=== PATIENT | female | born 1950 | race Caucasian/White ===

== ENCOUNTER 2017-10-15 14:13 | Inpatient (IN) | payer MEDICARE, BC ==
[2017-10-15] MEDS ORDERED: Morphine INJ* 4 MG/ML 1 ML SYRINGE (NEW SYRINGE VERSION) IV ONE ×2 (14:37→15:39)
[2017-10-15] MEDS ORDERED: Ondansetron INJ* 2 MG/ML VIAL IV ONE (14:37)
[2017-10-15] MEDS: NS 0.9% 1000 ML* 1,000 ML IV SCH ×3 (14:43→21:45)
[2017-10-15 15:19] LABS: ABS Basophils 0.1 10^3/ul (0-0.2); ABS Eosinophils 0.1 10^3/ul (0-0.6); ABS Lymphocytes 1.2 10^3/ul (1.0-4.8); ABS Monocytes 0.5 10^3/ul (0-0.8); ABS Neutrophils 3.3 10^3/ul (1.5-7.7); ABS Nucleated RBC 0 10^3/ul; Eosinophil % 1.3 % (0-6); Hematocrit 40 % (35-47); Hemoglobin 13.5 g/dl (12.0-16.0); Lymphocyte % 23.2 % (25-47); Mean Corpuscular HGB Conc 34 g/dl (31-36); Mean Corpuscular Hemoglobin 34 pg (27-31); Mean Corpuscular Volume 100 fL (80-97); Mean Platelet Volume 7.8 um3 (7.4-10.4); Nucleated Red Blood Cells % 0; Platelet Count 278 10^3/ul (150-450); Red Blood Count 3.97 10^6/ul (4.0-5.4); Red Cell Distribution Width 13 % (10.5-15); White Blood Count 5.2 10^3/ul (3.5-10.8)
[2017-10-15 15:28] LABS: INR 0.86 (0.77-1.02)
[2017-10-15] MEDS ORDERED: Morphine INJ* 4 MG/ML 1 ML SYRINGE (NEW SYRINGE VERSION) ONE (15:40)
--- NOTE | 2017-10-15 16:29 | RAD ---
Indication: LEFT hip and thigh pain post fall. Comparison: No relevant prior exams available on the [facility] PACS for comparison. Technique: Crosstable RIGHT lateral decubitus oblique AP view of the pelvis and crosstable AP view of the proximal through mid to distal diaphysis of the LEFT femur. Report: Oblique positioning limits assessment. There is an intratrochanteric fracture of the femur with varus angulation. The femoral head remains located at the acetabulum. Mild osteophytic lipping and axial joint space narrowing at the hips similar to the contralateral side. No pelvic fracture evident. Negative for pelvic joint diastases. IMPRESSION: Limited exam due to oblique positioning with evidence for an intratrochanteric fracture of the LEFT femur with resulting varus positioning. Correlate with clinical assessment and consider repeat radiographs for confirmation if deemed appropriate.
--- NOTE | 2017-10-15 16:29 | RAD ---
Indication: LEFT hip and thigh pain post fall. Comparison: No relevant prior exams available on the [facility] PACS for comparison. Technique: Crosstable RIGHT lateral decubitus oblique AP view of the pelvis and crosstable AP view of the proximal through mid to distal diaphysis of the LEFT femur. Report: Oblique positioning limits assessment. There is an intratrochanteric fracture of the femur with varus angulation. The femoral head remains located at the acetabulum. Mild osteophytic lipping and axial joint space narrowing at the hips similar to the contralateral side. No pelvic fracture evident. Negative for pelvic joint diastases. IMPRESSION: Limited exam due to oblique positioning with evidence for an intratrochanteric fracture of the LEFT femur with resulting varus positioning. Correlate with clinical assessment and consider repeat radiographs for confirmation if deemed appropriate.
[2017-10-15] MEDS ORDERED: HYDROmorphone INJ* 1 MG/ML CARPUJECT SYRINGE IV ONE (16:42)
[2017-10-15] MEDS ORDERED: HYDROmorphone INJ* 2 MG/ML CARPUJECT SYRINGE ONE (16:45)
[2017-10-15] MEDS ORDERED: Ondansetron INJ* 2 MG/ML VIAL IV PRN (17:20)
[2017-10-15] MEDS ORDERED: Polyethylene Glycol 3350* 17 GM PACKET PO PRN (17:20)
[2017-10-15] MEDS ORDERED: hydrALAZINE IV* 20 MG/ML VIAL IV SLOW PU PRN (17:22)
--- NOTE | 2017-10-15 17:30 | RAD ---
Indication: Fall with LEFT hip fracture. Comparison: Radiographs of the same date. Technique: Noncontrast CT pelvis and proximal femurs performed with the patient in the RIGHT lateral decubitus position. Multiplanar reformation. Report: Comminuted intratrochanteric fracture of the LEFT femur with apex lateral and anterior angulation. The femoral head remains located at the acetabulum. Small LEFT hip joint effusion. 3.7 cm AP by 5.5 cm transverse by 4.3 cm cephalocaudal hematoma between the fracture fragments and the gluteus pippa muscle posteriorly. Moderate marginal osteophytosis and axial joint space narrowing at both hips. Negative for pelvic fracture or pelvic joint diastases. Severe diverticulosis of the sigmoid colon. Distended urinary bladder. Negative for free pelvic fluid. IMPRESSION: Comminuted intratrochanteric fracture of the LEFT femur with apex lateral and anterior angulation. The femoral head remains located at the acetabulum.
[2017-10-15] MEDS ORDERED: Acetaminophen TAB* 325 MG PO PRN (18:12)
--- NOTE | 2017-10-15 18:29 | ED ---
Luis Armando Richardson Natalie, scribed for Carlos Burkett MD on 10/15/17 at 1520 . Lower Extremity - HPI Summary HPI Summary: The pt is a 67 y/o F presenting to the ED c/o pain in left femur and hip s/p fall today. She was standing up when a dog ran into her leg, she fell on her right side, rolled, and then was unable to stand up. The pain is rated 8/10. There is minimal pain in her left knee. She denies pain in her wrist, shoulders , and ankle. She usually get cramps, which have been making the pain worse. She does not take any medications regularly. - History of Current Complaint Chief Complaint: EDExtremityLower Stated Complaint: FALL/KNOCKED DOWN Time Seen by Provider: 10/15/17 14:37 Hx Obtained From: Patient Mechanism Of Injury: Other - knocked down on left leg Onset of Pain: Immediate Pain Intensity: 8 Pain Scale Used: 0-10 Numeric Timing: Lasting Minutes Location: Is Discrete @ - left femur Associated Signs And Symptoms: Positive: Knee Pain, Other - NEGATIVE: pain in shoulders, wrist, ankle Aggravating Factor(s): Standing, Movement Alleviating Factor(s): Rest Able to Bear Weight: No - Allergies/Home Medications Allergies/Adverse Reactions: Allergies Allergy/AdvReac Type Severity Reaction Status Date / Time No Known Allergies Allergy Verified 10/15/17 14:19 Home Medications: Home Medications NK [No Home Medications Reported] 10/15/17 [History Confirmed 10/15/17] PMH/Surg Hx/FS Hx/Imm Hx Previously Healthy: Yes Opthamlomology History: Denies: Hx Legally Blind EENT History: Denies: Hx Deafness Infectious Disease History: No Infectious Disease History: Denies: Traveled Outside the [place] in Last 30 Days - Family History Known Family History: Negative: Cardiac Disease, Diabetes - Social History Alcohol Use: None Substance Use Type: Reports: None Smoking Status (MU): Never Smoked Tobacco Review of Systems Negative: Fever Positive: Decreased ROM, Other - pain in left femur All Other Systems Reviewed And Are Negative: Yes Physical Exam Triage Information Reviewed: Yes Vital Signs On Initial Exam: Initial Vitals Temp Pulse Resp BP Pulse Ox 99.0 F 102 20 164/78 95 10/15/17 14:20 10/15/17 14:20 10/15/17 14:20 10/15/17 14:20 10/15/17 14:20 Vital Signs Reviewed: Yes Appearance: Positive: Well-Appearing, Pain Distress - moderate Skin: Positive: Warm, Skin Color Reflects Adequate Perfusion, Dry Head/Face: Positive: Normal Head/Face Inspection Eyes: Positive: EOMI, VENITA ENT: Positive: Normal ENT inspection Neck: Positive: Supple, Nontender Respiratory/Lung Sounds: Positive: Clear to Auscultation, Breath Sounds Present Cardiovascular: Positive: RRR Abdomen Description: Positive: Nontender, Soft Bowel Sounds: Positive: Present Musculoskeletal: Positive: Normal, Other - tender to palpation in left proximal femur Neurological: Positive: Normal, Sensory/Motor Intact, Alert, Oriented to Person Place, Time Psychiatric: Positive: Affect/Mood Appropriate Diagnostics - Vital Signs Vital Signs Temp Pulse Resp BP Pulse Ox 10/15/17 14:43 16 10/15/17 14:30 101 157/63 96 10/15/17 14:22 100 95 10/15/17 14:20 99.0 F 102 20 162/81 95 - Laboratory Lab Results: Lab Results 10/15/17 10/15/17 10/15/17 Range/Units 14:32 14:32 14:32 WBC 5.2 (3.5-10.8) 10^3/ul RBC 3.97 L (4.0-5.4) 10^6/ul Hgb 13.5 (12.0-16.0) g/dl Hct 40 (35-47) % MCV 100 H (80-97) fL MCH 34 H (27-31) pg MCHC 34 (31-36) g/dl RDW 13 (10.5-15) % Plt Count 278 (150-450) 10^3/ul MPV 7.8 (7.4-10.4) um3 Neut % (Auto) 64.6 (38-83) % Lymph % (Auto) 23.2 L (25-47) % [place] % (Auto) 9.8 H (0-7) % Eos % (Auto) 1.3 (0-6) % Baso % (Auto) 1.1 (0-2) % Absolute Neuts (auto) 3.3 (1.5-7.7) 10^3/ul Absolute Lymphs (auto) 1.2 (1.0-4.8) 10^3/ul Absolute Monos (auto) 0.5 (0-0.8) 10^3/ul Absolute Eos (auto) 0.1 (0-0.6) 10^3/ul Absolute Basos (auto) 0.1 (0-0.2) 10^3/ul Absolute Nucleated RBC 0 10^3/ul Nucleated RBC % 0 INR (Anticoag Therapy) 0.86 (0.77-1.02) APTT 30.8 (26.0-36.3) seconds Sodium 136 L (139-145) mmol/L Potassium 4.3 (3.5-5.0) mmol/L Chloride 97 L (101-111) mmol/L Carbon Dioxide 29 (22-32) mmol/L Anion Gap 10 (2-11) mmol/L BUN 17 (6-24) mg/dL Creatinine 0.62 (0.51-0.95) mg/dL Est GFR ( Amer) 123.5 (>60) Est GFR (Non-Af Amer) 96.0 (>60) BUN/Creatinine Ratio 27.4 H (8-20) Glucose 106 H (70-100) mg/dL Calcium 9.8 (8.6-10.3) mg/dL Total Bilirubin 0.40 (0.2-1.0) mg/dL AST 18 (13-39) U/L ALT 15 (7-52) U/L Alkaline Phosphatase 67 (34-104) U/L Total Protein 7.7 (6.4-8.9) g/dL Albumin 4.6 (3.2-5.2) g/dL Globulin 3.1 (2-4) g/dL Albumin/Globulin Ratio 1.5 (1-3) Result Diagrams: 10/15/17 14:32 10/15/17 14:32 Lab Statement: Any lab studies that have been ordered have been reviewed, and results considered in the medical decision making process. - Radiology L Femur XR Xray Interpretation: Positive (See Comments) - Limited exam due to oblique positioning with evidence for an intratrochanteric fracture of the LEFT femur with resulting varus positioning. Correlate with clinical assessment and consider repeat radiographs for confirmation if deemed appropriate. ED physician has reviewed this report. Radiology Interpretation Completed By: Radiologist Pelvis XR Xray Interpretation: Positive (See Comments) - Limited exam due to oblique positioning with evidence for an intratrochanteric fracture of the LEFT femur with resulting varus positioning. Correlate with clinical assessment and consider repeat radiographs for confirmation if deemed appropriate. ED physician has reviewed this report. Radiology Interpretation Completed By: Radiologist Lower Extremity Course/Dx - Course Course Of Treatment: Medications reviewed. BP noted and advised to follow up with PCP. DISCUSSED WITH DR GREENE. ADMIT HOSPITALIST. - Diagnoses Provider Diagnoses: Elevated BP without diagnosis of hypertension, Hip fracture, left Discharge - Sign-Out/Discharge Documenting (check all that apply): Discharge - Discharge Plan Condition: Stable Disposition: ADMITTED TO [facility] Discharge Disposition Comment: The pt will be admitted to [facility]. Referrals: Amari William MD [Primary Care Provider] - Additional Instructions: Your blood pressure was elevated during todays visit; please follow up with your primary care provider within a week for further evaluation. - Billing Disposition and Condition Condition: STABLE Disposition: [facility] The documentation as recorded by the Luis Armando lao Natalie accurately reflects the service I personally performed and the decisions made by me, Carlos Burkett MD.
[2017-10-15] MEDS ORDERED: Heparin VIAL(*) 5000 UNITS/ML VIAL (FIVE THOUSAND) SUBCUT SCH ×2 (19:00→22:00)
[2017-10-15] MEDS: HYDROmorphone INJ* 2 MG/ML CARPUJECT SYRINGE IV SLOW PU PRN ×2 (19:08→22:22)
[2017-10-15] MEDS: Senna TAB PO SCH (20:42)
--- NOTE | 2017-10-15 23:03 | HP ---
HISTORY AND PHYSICAL: DATE OF ADMISSION: 10/15/17. ADMITTING PROVIDER: Ac Drake MD. PRIMARY CARE PHYSICIAN: Dr. Amari William. CHIEF COMPLAINT: Left leg and hip pain after a fall. HISTORY OF PRESENT ILLNESS: Alexia Liang is a 67-year-old female with no past medical history, but does frequently drink wine 5 days a week, 3 glasses a day, but denies any history of withdrawal symptoms, DUIs or other impairment of function. She was playing with her dog in the dog park when a presumably large dog rammed into her blind-sided her such that she was not even prepared to catch her fall with her arms. She landed on to her left side, flipped around, so that the left side was then up and was immediately in pain and a degree of shock, felt degree of numbness of the left leg at that time. She was transported to the [facility] Emergency Room and had femur x-ray, pelvis x-ray, and pelvis CT scans, which demonstrated evidence of a comminuted intertrochanteric fracture of the left femur with apex, lateral, and anterior angulation and retention of the femoral head in the acetabulum. Dr. Pan of Orthopedic Surgery was contacted by the emergency room, who requested the hospitalist service to admit the patient in anticipation of surgery. The patient's blood pressures elevated in the emergency room initially 160s/80s and then up to 180s/ 80s and heart rate in the low 100s. She is getting multiple doses of IV morphine and Dilaudid to control the pain with the repositioning required for the imaging studies. She states that if she is not moving, the pain was about 5 or 6 out of 10 and with moving it becomes quite bad, 9 out of 10. She denies other complaints. Specifically, denies any fever, chills, nausea, vomiting, diarrhea, or constipation, headaches, vision changes, rashes. Dr. Pan is planning surgery tomorrow morning. PAST MEDICAL HISTORY: None other than frequent alcohol use approximately 15 glasses of wine a week for the last 15 years. MEDICATIONS: None. ALLERGIES: No known drug allergies. FAMILY HISTORY: The patient's mother and father both in their 90s and suffered dementia at that time. One brother of lung cancer, likely metastatic to the brain. Other sisters are healthy. SOCIAL HISTORY: The patient lives alone in [place], [place]. 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 She occasionally works at the [employer]. Her medical surrogate is her daughter, Shannan Miramontes. She desires to be a full code. REVIEW OF SYSTEMS: A complete 14-point review of systems was negative except as per HPI. PHYSICAL EXAMINATION GENERAL APPEARANCE: No acute distress, lying in the right lateral decubitus position. VITAL SIGNS: Heart rate 103, blood pressure 182/84, temperature 99.0, oxygen sat 97% on room air, respiratory rate 16 to 20. HEENT: Normocephalic, atraumatic. Pupils are equal, round and reactive to light. Extraocular motions are intact. NECK: Supple. No cervical lymphadenopathy. PULMONARY: Clear to auscultation bilaterally with no wheezing, rales, or rhonchi. CARDIOVASCULAR: Regular rate and rhythm. Slightly tachycardic. No murmurs appreciated. ABDOMEN: Soft, nontender, nondistended. EXTREMITIES: Warm, well perfused. Left leg with intact sensation. No gross deformity or skin breaks. NEUROLOGIC: Sensation intact bilaterally. Cranial nerves intact grossly. Full lower extremity testing not performed given femur fracture. SKIN: No lesions. No rashes. LABORATORY DATA: White count 5.2, hemoglobin 13.5, hematocrit 40, MCV 100, platelets 278. INR 0.86. Sodium 136, potassium 4.3, chloride 97, BUN 17, creatinine 0.62, glucose 106, total bili 0.48, AST 18, ALT 15, alk phos 67. IMAGING: Femur x-ray demonstrated a limited exam due to oblique positioning with evidence of an intertrochanteric fracture of the left femur with resulting varus positioning. Pelvis x-ray as above. CT pelvis, noncontrast demonstrated comminuted intertrochanteric fracture of the left femur with apex, lateral and anterior angulation. Femoral head remains located at the acetabulum. ASSESSMENT AND PLAN: Alexia Liang is a 67-year-old female with past medical history significant for 15 glasses of wine, alcohol use, but denies any history of withdrawals or seizures presenting with left comminuted intertrochanteric fracture after a mechanical fall after being rammed and blind sided by a dog. We will control her blood pressures with hydralazine p.r.n. We will get an EKG as we do not have one in our system to help with assess risks perioperatively. We will control her pain with Dilaudid 1 mg q.3 hours p.r.n., add on bowel regimen and antinausea with Zofran. She can eat an unrestricted diet until midnight then NPO. She was also getting acetaminophen 650 mg p.o. q.6 hours p.r.n. for pain or fevers. We will give one heparin 5000 unit shot tonight and then hold in the morning given the anticipated surgery around 8:00 a.m. Low threshold to place the patient on WAM protocol, but we will defer for now. She is being admitted to inpatient status. She is a full code. Medical surrogate is her daughter, Shannan Miramontes. [id number]/[facility] #: [id number] MTDKatelyn
[2017-10-16] MEDS: HYDROmorphone INJ* 2 MG/ML CARPUJECT SYRINGE IV SLOW PU PRN ×3 (01:35→07:44)
[2017-10-16] MEDS: NS 0.9% 1000 ML* 1,000 ML IV SCH ×2 (04:46→22:07)
[2017-10-16] MEDS ORDERED: Famotidine IV* 10 MG/ML 2 ML (20 mg) IV ONE (06:00)
[2017-10-16] MEDS ORDERED: fentaNYL* 50 MCG/ML 2 ML VIAL (100 MCG VIAL) ONE (07:33)
[2017-10-16] MEDS ORDERED: Midazolam* 1 MG/ML 5 ML VIAL (5 MG) ONE (07:33)
[2017-10-16] MEDS ORDERED: Scopolamine 1.5 mg* PATCH ONE (07:51)
[2017-10-16] MEDS ORDERED: KETAMINE HCL* 50 MG/ML 10 ML VIAL ONE (07:59)
[2017-10-16] MEDS ORDERED: Scopolamine 1.5 mg* PATCH TRANSDERM SCH (08:00)
[2017-10-16] MEDS ORDERED: HYDROmorphone INJ* 1 MG/ML CARPUJECT SYRINGE IV PRN (08:30)
[2017-10-16] MEDS ORDERED: DiMENhydriNATE IV* 50 MG/ML VIAL IV PUSH PRN (08:30)
[2017-10-16] MEDS ORDERED: fentaNYL* 50 MCG/ML 2 ML VIAL (100 MCG VIAL) IV PRN (08:30)
[2017-10-16] MEDS ORDERED: PROCHLORPERAZINE INJ 5 MG/ML 2 ML VIAL IV PRN (08:30)
[2017-10-16] MEDS ORDERED: Naloxone* 0.4 MG/ML 1 ML VIAL IV PRN (08:30)
[2017-10-16] MEDS ORDERED: ceFAZolin 2 GM PREMIX (*) 2 GM/50 ML BAG IVPB ONE (08:43)
[2017-10-16] MEDS ORDERED: Bupivacaine 0.5% SDV PF* 30ML VIAL ONE ×2 (09:35→09:53)
[2017-10-16] MEDS ORDERED: Lidocain 1% EPI 1:100,000 * 30 ML MDV ONE (09:35)
[2017-10-16] MEDS ORDERED: Lidocaine 2% PF * 5 ML VIAL ONE (09:52)
[2017-10-16] MEDS ORDERED: Propofol* 500 MG/50 ML BTL ONE (09:52)
[2017-10-16] MEDS ORDERED: Phenylephrine INJ* 10 MG/ML 1 ML VIAL (10 MG) ONE (09:52)
[2017-10-16] MEDS ORDERED: PROCHLORPERAZINE INJ 5 MG/ML 2 ML VIAL ONE (09:53)
[2017-10-16] MEDS ORDERED: Ketorolac INJ* 30 MG/ML 1 ML VIAL ONE (09:53)
[2017-10-16] MEDS ORDERED: Dexamethasone IV* 4 MG/ML 1 ML (4 MG) ONE (09:53)
[2017-10-16] MEDS ORDERED: EPHEDrine (Pressors)* 50 MG/ML VIAL ONE (10:31)
--- NOTE | 2017-10-16 10:45 | RAD ---
INDICATION: Left hip ORIF, left femur fracture, pain status post fall COMPARISONS: October 15, 2017 TECHNIQUE: Fluoroscopy was provided for a surgical procedure. Total fluoroscopy time is: 35.9 seconds FINDINGS: Spot images demonstrated internal fixation of the left femur. IMPRESSION: FLUOROSCOPY WAS PROVIDED FOR A SURGICAL PROCEDURE CPT II Codes: 6045F
[2017-10-16] MEDS ORDERED: Morphine INJ* 2 MG/ML 1 ML CARPUJECT IV PRN (13:11)
[2017-10-16] MEDS ORDERED: Heparin VIAL(*) 5000 UNITS/ML VIAL (FIVE THOUSAND) SUBCUT SCH (14:00)
--- NOTE | 2017-10-16 14:24 | OP ---
DATE OF SURGERY: 10/15/17 - ROOM #349 DATE OF : 50 ATTENDING PHYSICIAN: Randy Pan MD. PREOPERATIVE DIAGNOSIS: A 4-part left intertrochanteric displaced hip fracture. POSTOPERATIVE DIAGNOSIS: A 4-part left intertrochanteric displaced hip fracture. OPERATIVE PROCEDURE: Open reduction/internal fixation left hip fracture. ANESTHESIA: Spinal with sedation. ESTIMATED BLOOD LOSS: Less than 50 mL. COMPLICATIONS: None. HARDWARE: Synthes DHS 150 degree 4-hole short barrel plate with 100 mm screw and compression screw. SUMMARY: Ms. Liang is a 67-year-old female who yesterday had been knocked over by some dogs at the [employer]. She had not seem them and had fallen directly onto her left hip. She had significant pain over the hip and was brought to the emergency room here at [facility], where an x-ray found a left hip fracture. Unfortunately, she had such significant pain and we are unable to say exactly what type of fracture she had, so she underwent a CAT scan which showed a 4-part left intertrochanteric fracture. I discussed with her that a DHS should work well to hold the bones in place while they heal. I had warned her that she has some comminution and that the lesser trochanter will continue to give her pain, but she will be able to put some weight on this and maneuver and hopefully be in a lot less pain than she would be preoperatively. Risk of surgery such as infection, scar formation, stiffness, DVT, pulmonary embolism, hardware failure, nonunion, and losing a level of function were some of the risks discussed she had wished to proceed. PROCEDURE IN DETAIL: Patient was brought to the OR and spinal anesthesia was introduced. She was then placed on the fracture table in position so that her arms are nicely padded and that the right leg was abducted and flexed and there was no tension on her abductors. Traction was placed and hip was reduced and this was adjusted and filled. I had essentially a perfect AP and lateral view with an excellent reduction. Left hip area was prepped and then draped. Skin over the incision layer was infiltrated using a 50:50 mixture of 0.5% Marcaine and 1% lidocaine with epinephrine. Incision was made laterally over the greater trochanter coming downward for a good 8 cm. Incision was carried down through the skin and subcutaneous tissues. Fascia laterally was exposed and sharply incised. Fascia of the vastus lateralis was easily found and I found a nice convenient gap and this was sharply split. Using finger dissection and with a Reyes I was able to split the muscle inline the fibers coming down to the lateral aspect of the femur. Reyes was then used to remove soft tissues from the lateral aspect of the femur. Beginning with a 135 degree angle guide, I ran a guidepin up through the neck towards the head, but with the positioning I was unhappy with how the angle came and eventually switched to a 150 degree. Guidepin was adjusted and with the guidepin in I liked the positioning on the AP view. Coming to the lateral, I was very anterior and second pin was then placed parallel to this pin and original pin was removed. I like the new positioning of the pin as I was right down the neck coming in to the head very nicely. Portion of the pin sticking out which was measured and a 100 mm hip screw was called for. Triple reamer was run with a short barrel and hip screw was then placed. Nice bite was obtained. A 150-degree 4-hole short barrel plate was then placed and positioned until it sat nicely against the side of the femur. One screw was placed to just pull the plate down and hold the plate and the 3 remaining screw holes were filled in standard AO fashion. Original screw was long, but I intended this to be so, and this was removed and a appropriate size screw was placed. Final x-ray pictures were taken and saved. Compression screw was also placed. Wound was irrigated a using bulb syringe and muscular fascia was repaired using a running 0 Vicryl stitch. Fascia was repaired a using a running #1 Vicryl stitch and the subcutaneous tissues were approximated 2- 0 Vicryl. Skin was closed using kyree. Sterile dressing was applied in the OR. Patient was awaken stable on transfer to the recovery room. [id number]/[facility] #: [id number] LIZZIE
[2017-10-16 15:34] LABS: ABS Basophils 0 10^3/ul (0-0.2); ABS Eosinophils 0 10^3/ul (0-0.6); ABS Lymphocytes 0.3 10^3/ul (1.0-4.8); ABS Monocytes 0.6 10^3/ul (0-0.8); ABS Neutrophils 7.3 10^3/ul (1.5-7.7); ABS Nucleated RBC 0 10^3/ul; Eosinophil % 0 % (0-6); Hematocrit 34 % (35-47); Hemoglobin 11.7 g/dl (12.0-16.0); Lymphocyte % 3.4 % (25-47); Mean Corpuscular HGB Conc 34 g/dl (31-36); Mean Corpuscular Hemoglobin 34 pg (27-31); Mean Corpuscular Volume 99 fL (80-97); Mean Platelet Volume 7.5 um3 (7.4-10.4); Nucleated Red Blood Cells % 0; Platelet Count 227 10^3/ul (150-450); Red Blood Count 3.45 10^6/ul (4.0-5.4); Red Cell Distribution Width 12 % (10.5-15); White Blood Count 8.2 10^3/ul (3.5-10.8)
[2017-10-16 15:52] LABS: EGFR Non-African American 110.2 (>60)
[2017-10-16] MEDS: Ketorolac INJ* 15 MG/ML 1 ML VIAL IV PUSH SCH (17:12)
[2017-10-16] MEDS: ceFAZolin 1 GM in Dextrose (*) 1 GM/50 ML BAG IVPB SCH (17:13)
[2017-10-16] MEDS: HYDROcodone/ACETAMIN 5-325 MG* 1 TAB PO PRN ×2 (17:58→22:06)
--- NOTE | 2017-10-16 18:37 | PN ---
Subjective Date of Service: 10/16/17 Interval History: HOSPITALIST PROGRESS NOTE Patient seen and examined in PACU. Case reviewed with her RN Kole Roberts. She feels well after surgery, pain is well controlled. Family History: Unchanged from Admission Social History: Unchanged from Admission Past Medical History: Unchanged from Admission Objective Active Medications: Acetaminophen (Tylenol Tab*) 650 mg PO Q6H PRN PRN Reason: FEVER/PAIN Hydrocodone Bitart/Acetaminophen ([place] 5-325 Tab*) 2 tab PO Q4H PRN PRN Reason: MOD. Last Admin: 10/16/17 17:58 Dose: 2 tab Aspirin (Aspirin Tab*) 325 mg PO DAILY [facility] Heparin Sodium (Porcine) (Heparin Vial(*)) 5,000 units SUBCUT 0600,1400,2200 [facility] Hydralazine HCl (Apresoline Iv*) 10 mg IV SLOW PU Q2H PRN PRN Reason: SYSTOLIC BP GREATER THAN: Sodium Chloride (Ns 0.9% 1000 Ml*) 1,000 mls @ 75 mls/hr IV PER RATE [facility] Last Admin: 10/16/17 04:46 Dose: 75 mls/hr Cefazolin Sodium/Dextrose (Kefzol 2 Gm Premix(*)) 2 gm in 50 mls @ 100 mls/hr IVPB ONCALL ONE Stop: 10/17/17 09:14 Cefazolin Sodium/Dextrose (Kefzol 1 Gm In Dextrose Duplex (*)) 1 gm in 50 mls @ 200 mls/hr IVPB Q8H [facility] Stop: 10/17/17 09:14 Last Admin: 10/16/17 17:13 Dose: 200 mls/hr Ketorolac Tromethamine (Toradol Inj*) 15 mg IV PUSH Q8H [facility] Last Admin: 10/16/17 17:12 Dose: 15 mg Morphine Sulfate (Morphine Inj (Syringe)*) 2 mg IV Q1H PRN PRN Reason: SEVERE Ondansetron HCl (Zofran Inj*) 4 mg IV Q6H PRN PRN Reason: NAUSEA Pharmacy Profile Note (Scopolamine Patch Remove*) 1 note PATCH OFF Q72H [facility] Polyethylene Glycol/Electrolytes (Miralax*) 17 gm PO DAILY PRN PRN Reason: CONSTIPATION Scopolamine (Transderm-Scop 1.5 Mg Patch*) 1 patch TRANSDERM Q72H [facility] Last Admin: 10/16/17 08:21 Dose: Not Given Senna (Senokot Tab*) 1 tab PO BEDTIME [facility] Last Admin: 10/15/17 20:42 Dose: Not Given Vital Signs - 8 hr 10/16/17 10/16/17 10/16/17 10:45 10:50 10:55 Temperature 97.9 F Pulse Rate 94 93 92 Respiratory 16 14 14 Rate Blood Pressure 146/68 142/78 150/84 (mmHg) O2 Sat by Pulse 99 99 97 Oximetry 10/16/17 10/16/17 10/16/17 11:00 11:15 11:30 Temperature 98.4 F Pulse Rate 89 83 81 Respiratory 14 14 14 Rate Blood Pressure 156/73 160/84 154/87 (mmHg) O2 Sat by Pulse 97 99 97 Oximetry Oxygen Devices in Use Now: Nasal Cannula Appearance: Pleasant lady lying in bed in NAD. Eyes: No Scleral Icterus Ears/Nose/Mouth/Throat: Mucous Membranes Moist Neck: Trachea Midline Respiratory: Symmetrical Chest Expansion and Respiratory Effort, Clear to Auscultation Cardiovascular: RRR - Normal S1 and S2 Extremities: No Edema, - - Good pulses bilaterally Neurological: Alert and Oriented x 3 Result Diagrams: 10/16/17 15:26 10/16/17 15:26 Assess/Plan/Problems-Billing Assessment: Ms. Liang is a 67yo F with PMH of possible ETOH abuse, who presented with c/o hip pain after fall found to have left hip fracture. - Patient Problems (1) Closed left femoral fracture Comment: - s/p ORIF 10/16/[address] Pan. EBL 50 ml. - Management as per Ortho. (2) ETOH abuse Comment: - There is concern for possible ETOH abuse considering the amount of wine she drinks. No signs of withdrawal at this time - will continue to monitor. (3) DVT prophylaxis Comment: - As per Ortho - SQ heparin. (4) Full code status Status and Disposition: Inpatient for management of ORIF post op.
[2017-10-16] MEDS: Senna TAB PO SCH (20:05)
[2017-10-17] MEDS: Ketorolac INJ* 15 MG/ML 1 ML VIAL IV PUSH SCH ×3 (01:19→17:20)
[2017-10-17] MEDS: ceFAZolin 1 GM in Dextrose (*) 1 GM/50 ML BAG IVPB SCH ×2 (01:21→08:35)
[2017-10-17] MEDS: HYDROcodone/ACETAMIN 5-325 MG* 1 TAB PO PRN ×3 (05:46→15:18)
[2017-10-17] MEDS: Heparin VIAL(*) 5000 UNITS/ML VIAL (FIVE THOUSAND) SUBCUT SCH ×3 (05:47→22:26)
--- NOTE | 2017-10-17 08:19 | PN ---
Progress Note - Progress Note Date of Service: 10/17/17 SOAP: Subjective: 67 y/o female w/ L intertroch hip fx s/p ORIF by Dr. Pan 10/16/2017. Patient doing well, working great with PT, pain better controlled, no side effects. VSS, afebrile overnight. Objective: General- Well appearing, NAD, AO sitting in chair comfortably. MSK- LLE- DF/PF = b/l, PT 2+, negative homans sign + mild edema thigh, surg dressing intact, no induration, drainage noted. SITLT Assessment: Stable 67 y/o female w/ L intertroch hip fx s/p ORIF by Dr. Pan 10/16/2017. Plan: - DVT prophylaxis- heparin in house - Continue PT/ OT - partial weight bearing 50% on LLE - Follow up with Dr. Phillips - H&H - Stable - post-op IV ABX - Running - hyponat- Hold IVFs, MVI, continue to monitor. BMP tomorrow Acetaminophen (Tylenol Tab*) 650 mg PO Q6H PRN PRN Reason: FEVER/PAIN Hydrocodone Bitart/Acetaminophen ([place] 5-325 Tab*) 2 tab PO Q4H PRN PRN Reason: MOD. Last Admin: 10/17/17 05:46 Dose: 2 tab Aspirin (Aspirin Tab*) 325 mg PO DAILY [facility] Last Admin: 10/17/17 08:39 Dose: 325 mg Heparin Sodium (Porcine) (Heparin Vial(*)) 5,000 units SUBCUT 0600,1400,2200 [facility] Last Admin: 10/17/17 05:47 Dose: 5,000 units Hydralazine HCl (Apresoline Iv*) 10 mg IV SLOW PU Q2H PRN PRN Reason: SYSTOLIC BP GREATER THAN: Ketorolac Tromethamine (Toradol Inj*) 15 mg IV PUSH Q8H [facility] Last Admin: 10/17/17 08:37 Dose: 15 mg Morphine Sulfate (Morphine Inj (Syringe)*) 2 mg IV Q1H PRN PRN Reason: SEVERE Multivitamins (Theragran Tab*) 1 tab PO DAILY [facility] Last Admin: 10/17/17 08:39 Dose: 1 tab Ondansetron HCl (Zofran Inj*) 4 mg IV Q6H PRN PRN Reason: NAUSEA Pharmacy Profile Note (Scopolamine Patch Remove*) 1 note PATCH OFF Q72H [facility] Polyethylene Glycol/Electrolytes (Miralax*) 17 gm PO DAILY PRN PRN Reason: CONSTIPATION Scopolamine (Transderm-Scop 1.5 Mg Patch*) 1 patch TRANSDERM Q72H [facility] Last Admin: 10/16/17 08:21 Dose: Not Given Senna (Senokot Tab*) 1 tab PO BEDTIME [facility] Last Admin: 10/16/17 20:05 Dose: 1 tab
[2017-10-17] MEDS: Aspirin TAB* 325 MG PO SCH (08:39)
[2017-10-17] MEDS: Vitamin THERAPEUTIC TAB PO SCH (08:39)
[2017-10-17] MEDS ORDERED: ceFAZolin 2 GM PREMIX (*) 2 GM/50 ML BAG IVPB ONE (08:45)
--- NOTE | 2017-10-17 11:08 | PN ---
Subjective Date of Service: 10/17/17 Interval History: HOSPITALIST PROGRESS NOTE Patient seen and examined at bedside. Her pain is controlled at this time, was able to rest last night. Family History: Unchanged from Admission Social History: Unchanged from Admission Past Medical History: Unchanged from Admission Objective Active Medications: Acetaminophen (Tylenol Tab*) 650 mg PO Q6H PRN PRN Reason: FEVER/PAIN Hydrocodone Bitart/Acetaminophen ([place] 5-325 Tab*) 2 tab PO Q4H PRN PRN Reason: MOD. Last Admin: 10/17/17 10:54 Dose: 2 tab Aspirin (Aspirin Tab*) 325 mg PO DAILY [facility] Last Admin: 10/17/17 08:39 Dose: 325 mg Heparin Sodium (Porcine) (Heparin Vial(*)) 5,000 units SUBCUT 0600,1400,2200 [facility] Last Admin: 10/17/17 05:47 Dose: 5,000 units Hydralazine HCl (Apresoline Iv*) 10 mg IV SLOW PU Q2H PRN PRN Reason: SYSTOLIC BP GREATER THAN: Ketorolac Tromethamine (Toradol Inj*) 15 mg IV PUSH Q8H [facility] Last Admin: 10/17/17 08:37 Dose: 15 mg Morphine Sulfate (Morphine Inj (Syringe)*) 2 mg IV Q1H PRN PRN Reason: SEVERE Multivitamins (Theragran Tab*) 1 tab PO DAILY [facility] Last Admin: 10/17/17 08:39 Dose: 1 tab Ondansetron HCl (Zofran Inj*) 4 mg IV Q6H PRN PRN Reason: NAUSEA Pharmacy Profile Note (Scopolamine Patch Remove*) 1 note PATCH OFF Q72H [facility] Polyethylene Glycol/Electrolytes (Miralax*) 17 gm PO DAILY PRN PRN Reason: CONSTIPATION Scopolamine (Transderm-Scop 1.5 Mg Patch*) 1 patch TRANSDERM Q72H [facility] Last Admin: 10/16/17 08:21 Dose: Not Given Senna (Senokot Tab*) 1 tab PO BEDTIME [facility] Last Admin: 10/16/17 20:05 Dose: 1 tab Vital Signs - 8 hr 10/17/17 10/17/17 10/17/17 04:03 05:46 07:21 Temperature 98.4 F 98.2 F Pulse Rate 68 67 Respiratory 16 17 18 Rate Blood Pressure 134/70 117/61 (mmHg) O2 Sat by Pulse 98 100 Oximetry 10/17/17 10/17/17 10/17/17 07:54 08:40 10:54 Temperature Pulse Rate Respiratory 16 16 16 Rate Blood Pressure (mmHg) O2 Sat by Pulse Oximetry Oxygen Devices in Use Now: None Appearance: Pleasant lady lying in bed in NAD. Eyes: No Scleral Icterus Ears/Nose/Mouth/Throat: Mucous Membranes Moist Neck: Trachea Midline Respiratory: Symmetrical Chest Expansion and Respiratory Effort, Clear to Auscultation, - - BS a little diminished on right base Cardiovascular: NL Sounds; No Murmurs; No JVD, RRR Extremities: No Edema Neurological: Alert and Oriented x 3, NL Muscle Strength and Tone Result Diagrams: 10/16/17 15:26 10/16/17 15:26 Assess/Plan/Problems-Billing Assessment: Ms. Liang is a 67yo F with PMH of possible ETOH abuse, who presented with c/o hip pain after fall found to have left hip fracture. - Patient Problems (1) Closed left femoral fracture Comment: - s/p ORIF 10/16/[address] Pan. EBL 50 ml. - Management as per Ortho. (2) ETOH abuse Comment: - There is concern for possible ETOH abuse considering the amount of wine she drinks but she shows no signs of withdrawal. (3) DVT prophylaxis Comment: - As per Ortho - SQ heparin. (4) Full code status Status and Disposition: Inpatient for management of ORIF post op.
[2017-10-17 15:57] LABS: ABS Basophils 0 10^3/ul (0-0.2); ABS Eosinophils 0 10^3/ul (0-0.6); ABS Lymphocytes 1.2 10^3/ul (1.0-4.8); ABS Monocytes 0.9 10^3/ul (0-0.8); ABS Neutrophils 3.3 10^3/ul (1.5-7.7); ABS Nucleated RBC 0 10^3/ul; Eosinophil % 0.8 % (0-6); Hematocrit 29 % (35-47); Hemoglobin 10.1 g/dl (12.0-16.0); Lymphocyte % 21.4 % (25-47); Mean Corpuscular HGB Conc 35 g/dl (31-36); Mean Corpuscular Hemoglobin 34 pg (27-31); Mean Corpuscular Volume 99 fL (80-97); Mean Platelet Volume 7.3 um3 (7.4-10.4); Nucleated Red Blood Cells % 0; Platelet Count 198 10^3/ul (150-450); Red Blood Count 2.95 10^6/ul (4.0-5.4); Red Cell Distribution Width 12 % (10.5-15); White Blood Count 5.5 10^3/ul (3.5-10.8)
[2017-10-17 16:37] LABS: EGFR Non-African American 117.6 (>60)
[2017-10-17] MEDS: Senna TAB PO SCH (22:28)
[2017-10-18] MEDS: Ketorolac INJ* 15 MG/ML 1 ML VIAL IV PUSH SCH ×2 (00:55→08:23)
[2017-10-18 05:36] LABS: ABS Basophils 0 10^3/ul (0-0.2); ABS Eosinophils 0 10^3/ul (0-0.6); ABS Lymphocytes 1.1 10^3/ul (1.0-4.8); ABS Monocytes 0.8 10^3/ul (0-0.8); ABS Neutrophils 3.6 10^3/ul (1.5-7.7); ABS Nucleated RBC 0 10^3/ul; Eosinophil % 0.8 % (0-6); Hematocrit 28 % (35-47); Hemoglobin 9.6 g/dl (12.0-16.0); Lymphocyte % 19.7 % (25-47); Mean Corpuscular HGB Conc 34 g/dl (31-36); Mean Corpuscular Hemoglobin 34 pg (27-31); Mean Corpuscular Volume 100 fL (80-97); Mean Platelet Volume 7.5 um3 (7.4-10.4); Nucleated Red Blood Cells % 0.1; Platelet Count 196 10^3/ul (150-450); Red Cell Distribution Width 12 % (10.5-15); White Blood Count 5.5 10^3/ul (3.5-10.8)
[2017-10-18] MEDS: Heparin VIAL(*) 5000 UNITS/ML VIAL (FIVE THOUSAND) SUBCUT SCH (05:45)
[2017-10-18 05:54] LABS: EGFR Non-African American 115.1 (>60)
--- NOTE | 2017-10-18 07:57 | PN ---
Progress Note - Progress Note Date of Service: 10/18/17 SOAP: Subjective: [] Patient with L intertroch hip fx s/p ORIF by Dr. Pan 10/16/2017. Patient feels well this morning, desires discharge to home. left hip is not currently painful, though has been painful with movement. Denies CP, SOB, dizziness, nausea, leg numbness. Objective: [] Vital Signs Temp 97.9 F 10/18/17 03:49 Pulse 74 10/18/17 03:49 Resp 16 10/18/17 03:49 BP 143/74 10/18/17 03:49 Pulse Ox 98 10/18/17 03:49 Intake & Output 10/17/17 10/18/17 10/18/17 18:59 06:59 18:59 Intake Total 2761 300 Output Total 1000 1150 Balance 1761 -850 Weight 122 lb Intake: IV Fluids 821 NS 821 Oral 1940 300 Output: Urine 400 1150 Duong 600 Other: Estimated Void Medium Laboratory Last Values WBC 5.5 10^3/ul (3.5-10.8) 10/18/17 05:17 RBC 2.80 10^6/ul (4.0-5.4) L 10/18/17 05:17 Hgb 9.6 g/dl (12.0-16.0) L 10/18/17 05:17 Hct 28 % (35-47) L 10/18/17 05:17 MCV 100 fL (80-97) H 10/18/17 05:17 MCH 34 pg (27-31) H 10/18/17 05:17 MCHC 34 g/dl (31-36) 10/18/17 05:17 RDW 12 % (10.5-15) 10/18/17 05:17 Plt Count 196 10^3/ul (150-450) 10/18/17 05:17 MPV 7.5 um3 (7.4-10.4) 10/18/17 05:17 Neut % (Auto) 64.9 % (38-83) 10/18/17 05:17 Lymph % (Auto) 19.7 % (25-47) L 10/18/17 05:17 [place] % (Auto) 14.0 % (0-7) H 10/18/17 05:17 Eos % (Auto) 0.8 % (0-6) 10/18/17 05:17 Baso % (Auto) 0.6 % (0-2) 10/18/17 05:17 Absolute Neuts (auto) 3.6 10^3/ul (1.5-7.7) 10/18/17 05:17 Absolute Lymphs (auto) 1.1 10^3/ul (1.0-4.8) 10/18/17 05:17 Absolute Monos (auto) 0.8 10^3/ul (0-0.8) 10/18/17 05:17 Absolute Eos (auto) 0 10^3/ul (0-0.6) 10/18/17 05:17 Absolute Basos (auto) 0 10^3/ul (0-0.2) 10/18/17 05:17 Absolute Nucleated RBC 0 10^3/ul 10/18/17 05:17 Nucleated RBC % 0.1 10/18/17 05:17 INR (Anticoag Therapy) 0.86 (0.77-1.02) 10/15/17 14:32 APTT 30.8 seconds (26.0-36.3) 10/15/17 14:32 Sodium 132 mmol/L (139-145) L 10/18/17 05:17 Potassium 4.3 mmol/L (3.5-5.0) 10/18/17 05:17 Chloride 99 mmol/L (101-111) L 10/18/17 05:17 Carbon Dioxide 29 mmol/L (22-32) 10/18/17 05:17 Anion Gap 4 mmol/L (2-11) 10/18/17 05:17 BUN 9 mg/dL (6-24) 10/18/17 05:17 Creatinine 0.53 mg/dL (0.51-0.95) 10/18/17 05:17 Est GFR ( Amer) 148.0 (>60) 10/18/17 05:17 Est GFR (Non-Af Amer) 115.1 (>60) 10/18/17 05:17 BUN/Creatinine Ratio 17.0 (8-20) 10/18/17 05:17 Glucose 116 mg/dL (70-100) H 10/18/17 05:17 Calcium 8.8 mg/dL (8.6-10.3) 10/18/17 05:17 Total Bilirubin 0.40 mg/dL (0.2-1.0) 10/15/17 14:32 AST 18 U/L (13-39) 10/15/17 14:32 ALT 15 U/L (7-52) 10/15/17 14:32 Alkaline Phosphatase 67 U/L (34-104) 10/15/17 14:32 Total Protein 7.7 g/dL (6.4-8.9) 10/15/17 14:32 Albumin 4.6 g/dL (3.2-5.2) 10/15/17 14:32 Globulin 3.1 g/dL (2-4) 10/15/17 14:32 Albumin/Globulin Ratio 1.5 (1-3) 10/15/17 14:32 General- Well appearing, NAD MSK- LLE dressing changed. Incision CDI without erythema or discharge. DF/PF intact. DP 2+. Sensation intact distally. Brisk capillary refill distally. BL LE: Calves supple and nontender without erythema, edema or palpable cords. Assessment: [] Stable 67 y/o female w/ L intertroch hip fx s/p ORIF by Dr. Pan 10/16/2017. Plan: - DVT prophylaxis- heparin in house , aspirin at DC - Continue PT/ OT - partial weight bearing 50% on LLE - Follow up with Dr. Phillips - hyponatremia improving
[2017-10-18] MEDS: Vitamin THERAPEUTIC TAB PO SCH (08:23)
[2017-10-18] MEDS: Aspirin TAB* 325 MG PO SCH (08:23)
[2017-10-18] MEDS: HYDROcodone/ACETAMIN 5-325 MG* 1 TAB PO PRN ×2 (08:23→13:09)
[2017-10-18 13:09] VITALS: BP 142/70
[2017-10-19] MEDS ORDERED: Scopolamine PATCH Remove* 1 NOTE MISC PATCH OFF SCH (08:00)
--- NOTE | 2017-10-19 11:09 | DS ---
CC: Dr. Amari William; Dr. Randy Pan. DISCHARGE SUMMARY: DATE OF ADMISSION: 10/15/17 DATE OF DISCHARGE: 10/18/17 PRIMARY CARE PROVIDER: Amari William MD ORTHOPEDIST: Randy Pan MD DISCHARGE DIAGNOSES: 1. Status post fall. 2. Left intertrochanteric displaced hip fracture, status post open reduction internal fixation. MEDICATION LIST: Both medications are new: 1. Aspirin 325 mg p.o. daily for DVT prophylaxis. 2. Hydrocodone/acetaminophen 5/325 mg 1 to 2 tablets p.o. q.6 hours p.r.n. pain, MDD 8 tablets. HOSPITAL COURSE: Ms. Linag is a 67-year-old lady with no significant past medical history that aileen tained a fall while playing with her dog. She developed left leg and hip pain and was found to have a left hip fracture and was admitted for further evaluation. She reports drinking 15 glasses of wine a week, and in the emergency room, she was hypertensive and t achycardic, so there was concern for alcohol withdrawal. The patient was admitted for further evalua tion and treatment. Her workup included a femur x-ray that showed intertrochanteric fracture of the left femur. CT of th e pelvis that showed a comminuted intertrochanteric fracture of the left femur. The patient was seen in consultation by Orthopedics (Dr. Pan) and taken to the OR on 10/15/17, wh ere she underwent open reduction internal fixation of the left hip fracture with an EBL less than 50 mL. The patient did well in the postop period. Her tachycardia resolved and her blood pressure is improv ed. She had no signs of withdrawal while in the hospital. The impression is that her tachycardia an d hypertension were likely associated with pain. She will benefit of followup as outpatient with her primary care provider. As per Dr. Pan, the patient will use aspirin for DVT prophylaxis and she will follow up with him in 10 to 12 days. She was also advised to follow up with her primary care provider. PHYSICAL EXAMINATION: Vital Signs: Temperature 98.3, heart rate is 83, respiratory rate is 16, oxyg en saturation 99% on room air, blood pressure is 142/70. General: The patient is a pleasant lady, s itting up in chair, in no acute distress. CVS: Normal S1, S2. Regular rate and rhythm. Chest: Br eath sounds bilaterally with no added sounds. Neuro: She is alert and oriented x3. Able to move al l 4 extremities. DIET: Regular diet. ACTIVITIES: As tolerated. DISPOSITION: To home. STATUS WHILE IN THE HOSPITAL: Inpatient. Please keep in mind this is a summarized version of this patient's hospital stay. If you need more in formation, please feel free to call me at [phone] or please obtain the full medical records. TIME SPENT: Approximately 45 minutes was spent to complete this discharge. [id number]/CPS #: [id number]
== END 2017-10-18 14:40 | disposition home health service (06) | DRG 481 ==
LOC: ED 14:13 → SSU 17:17
PROVIDERS: ADMIT Internal Medicine; ATTEND Internal Medicine
PROC: 0QS704Z Reposition Left Upper Femur with Internal Fixation Device, Open Approach (ICD-10-PCS; principal; 2017-10-15)
DX: S72.142A Displaced intertrochanteric fracture of left femur, initial encounter for closed fracture (principal); E87.1 Hypo-osmolality and hyponatremia; W18.39XA Other fall on same level, initial encounter; F10.10 Alcohol abuse, uncomplicated; Y92.830 Public park as the place of occurrence of the external cause; Z80.1 Family history of malignant neoplasm of trachea, bronchus and lung
CPT/HCPCS: 36415; 72170; 72192; 80048; 80053; 85025; 85610; 85730; 93005; 99284; A9270-GY; C1713; C1776; G8978-GP-CI; G8979-GP-CH; G8979-GP-CI; G8980-GP-CI; G8987-GO-CJ; G8988-GO-CI; G8989-GO-CI; J0690; J0780; J1100; J1170; J1644; J1885; J2250; J2270; J2405; J2704; J3010